=== PATIENT | male | born 1985 | race African-American/Black ===

== ENCOUNTER 2017-04-26 07:56 | Emergency (ER) | payer SELFPAY ==
[2017-04-26 08:05] VITALS: BP 114/64
[2017-04-26] MEDS ORDERED: TRAM-48 PO (08:10)
[2017-04-26] MEDS ORDERED: CIPR500T94 PO (08:10)
--- NOTE | 2017-04-26 08:10 | PHYS DOC ---
Adult General Chief Complaint Chief Complaint: FOOT INJURY PAIN HPI HPI Patient is a 32 year old male with no significant medical history who presents with a puncture wound to the right great toe. Patient states he stepped on the nail with rubber tennis shoes on. Review of Systems Review of Systems Constitutional: Denies fever or chills [] Musculoskeletal: Denies back pain or joint pain [] Integument:puncture wound to the right great toe Neurologic: Denies headache, focal weakness or sensory changes [] Current Medications Current Medications Current Medications Medications (Trade) Dose Ordered Sig/Kami Start Time Stop Time Status Last Admin Dose Admin Acetaminophen/ Hydrocodone Bitart (Lortab 5/325) 1 tab 1X ONCE 04/26/17 08:15 04/26/17 08:16 DC 04/26/17 08:18 1 TAB Diphtheria/ Tetanus/Acell Pertussis (Boostrix) 0.5 ml ONCE ONCE 04/26/17 08:15 04/26/17 08:16 DC 04/26/17 08:18 0.5 ML Allergies Allergies Allergies Coded Allergies Type Severity Reaction Last Updated Verified No Known Drug Allergies 04/26/17 No Physical Exam Physical Exam Constitutional: Well developed, well nourished, no acute distress, non-toxic appearance. [] Skin: Right lateral great toe distal end with a puncture entry and exit wound consistent with a stepping on a sharp object. Full range of motion to the right great toe. +2 right pedal pulse. Cap refill less than 2 seconds the right great toe. Back: No tenderness, no CVA tenderness. [] Extremities: No tenderness, no cyanosis, no clubbing, ROM intact, no edema. [] Neurologic: Alert and oriented X 3, normal motor function, normal sensory function, no focal deficits noted. [] Psychologic: Affect normal, judgement normal, mood normal. [] Current Patient Data Vital Signs Vital Signs Date Time Temp Pulse Resp B/P (MAP) Pulse Ox O2 Delivery O2 Flow Rate FiO2 04/26/17 08:18 16 04/26/17 08:05 98.4 87 114/64 (81) 98 Room Air 98.4 EKG EKG [] Radiology/Procedures Radiology/Procedures [] Course & Med Decision Making Course & Med Decision Making Pertinent Labs and Imaging studies reviewed. (See chart for details) Patient has a puncture wound to the right great toe. Given tetanus in the ED. Discharged on Cipro. Discharge and Motrin for pain. Provided wound care instructions as well as return precautions. Discharged in stable condition. Dragon Disclaimer Dragon Disclaimer This electronic medical record was generated, in whole or in part, using a voice recognition dictation system. Departure Departure Impression: Primary Impression: Puncture wound of foot, right Disposition: 01 HOME, SELF-CARE Condition: STABLE Patient Instructions: Puncture Wound Additional Instructions: You were seen for puncture wound to the right great toe. Keep the area clean and dry. You can wash it with soap and water. Only cover it if it's draining. Take the antibiotics prescribed until completed. Apply Neosporin to the area twice a day. Monitor it for signs and symptoms of infection including but not limited to increased redness warmth or odor/yellow drainage from the area and return to the ED if they occur. Follow-up with your own doctor in 1-2 weeks. Scripts Tramadol Hcl (ULTRAM) 50 Mg Tablet 1 TAB PO Q6HRS, #30 TAB Prov: HALEY GUDINO APRN 04/26/17 Ciprofloxacin Hcl (CIPRO) 500 Mg Tablet 1 TAB PO BID, #14 TAB Prov: HALEY GUDINO APRN 04/26/17 Problem Qualifiers Primary Impression: Puncture wound of foot, right Encounter type: initial encounter Qualified Codes: S91.331A - Puncture wound without foreign body, right foot, initial encounter HALEY GUDINO APRN Apr 26, 2017 08:10 HOLLY MCFARLANE MD Apr 26, 2017 08:58
[2017-04-26] MEDS ORDERED: HYDROcodone/APAP 5/325MG 1 TAB TABLET PO ONE (08:15)
[2017-04-26] MEDS ORDERED: DIPHTH,PERTUSS(ACELL),TET TOX 0.5 ML DISP.SYRIN. VAX IM ONE (08:15)
== END 2017-04-26 08:36 | disposition home or self-care (01) ==
LOC: ER 07:56
DX: S91.131A Puncture wound without foreign body of right great toe without damage to nail, initial encounter (principal); W45.0XXA Nail entering through skin, initial encounter; Y93.89 Activity, other specified; Y99.8 Other external cause status; Y92.89 Other specified places as the place of occurrence of the external cause
CPT/HCPCS: 90471; 90715; 99283-25

== ENCOUNTER 2018-07-31 15:27 | Emergency (ER) | payer SELFPAY ==
[~2018-07-31] VITALS: Ht 193 cm; Wt 94.3 kg
[~2018-07-31 15:27] MED LIST: CIPR500T94 PO; TRAM-48 PO
[2018-07-31] MEDS ORDERED: FAMOTIDINE 20 MG TABLET. PO ONE (16:00)
--- NOTE | 2018-07-31 16:04 | PHYS DOC ---
Past Medical History Past Medical History: No Pertinent History Past Surgical History: No Surgical History Alcohol Use: None Drug Use: None Adult General Chief Complaint Chief Complaint: COUGH HPI HPI Patient is a 33 year old male who presents complaining COUGH with blood tinged sputum earlier today. Patient denies any fever. Denies any nasal congestion. Denies any abdominal pain. He states he has history of smoking. Review of Systems Review of Systems Constitutional: Denies fever or chills [] Eyes: Denies change in visual acuity, redness, or eye pain [] HENT: Denies nasal congestion or sore throat [] Respiratory: Reports cough with blood-tinged sputum, denies shortness of breath [] Cardiovascular: No additional information not addressed in HPI [] GI: Denies abdominal pain, nausea, vomiting, bloody stools or diarrhea [] : Denies dysuria or hematuria [] Musculoskeletal: Denies back pain or joint pain [] Integument: Denies rash or skin lesions [] Neurologic: Denies headache, focal weakness or sensory changes [] All other systems were reviewed and found to be within normal limits, except as documented in this note. Current Medications Current Medications Current Medications Medications (Trade) Dose Ordered Sig/Kami Start Time Stop Time Status Last Admin Dose Admin Famotidine (Pepcid) 20 mg 1X ONCE 07/31/18 16:00 07/31/18 16:01 DC 07/31/18 16:13 20 MG Allergies Allergies Allergies Coded Allergies Type Severity Reaction Last Updated Verified No Known Drug Allergies 04/26/17 No Physical Exam Physical Exam Constitutional: Well developed, well nourished, no acute distress, non-toxic appearance. [] HENT: Normocephalic, atraumatic, bilateral external ears normal, oropharynx moist, no oral exudates, nose normal. [] Eyes: PERRLA, EOMI, conjunctiva normal, no discharge. [] Neck: Normal range of motion, no tenderness, supple, no stridor. [] Cardiovascular:Heart rate regular rhythm, no murmur [] Lungs & Thorax: Bilateral breath sounds clear to auscultation [] Abdomen: Bowel sounds normal, soft, no tenderness, no masses, no pulsatile masses. [] Skin: Warm, dry, no erythema, no rash. [] Back: No tenderness, no CVA tenderness. [] Extremities: No tenderness, no cyanosis, no clubbing, ROM intact, no edema. [] Neurologic: Alert and oriented X 3, normal motor function, normal sensory function, no focal deficits noted. [] Psychologic: Affect normal, judgement normal, mood normal. [] Current Patient Data Vital Signs Vital Signs Date Time Temp Pulse Resp B/P (MAP) Pulse Ox O2 Delivery O2 Flow Rate FiO2 07/31/18 15:52 98.6 61 16 129/63 (85) 98 Room Air 98.6 Lab Values Laboratory Tests Test 07/31/18 15:55 07/31/18 16:20 White Blood Count 7.5 x10^3/uL (4.0-11.0) Red Blood Count 5.05 x10^6/uL (4.30-5.70) Hemoglobin 14.9 g/dL (13.0-17.5) Hematocrit 44.7 % (39.0-53.0) Mean Corpuscular Volume 89 fL (79-100) Mean Corpuscular Hemoglobin 30 pg (25-35) Mean Corpuscular Hemoglobin Concent 33 g/dL (31-37) Red Cell Distribution Width 13.7 % (11.5-14.5) Platelet Count 180 x10^3/uL (140-400) Neutrophils (%) (Auto) 60 % (31-73) Lymphocytes (%) (Auto) 33 % (24-48) Monocytes (%) (Auto) 6 % (0-9) Eosinophils (%) (Auto) 2 % (0-3) Basophils (%) (Auto) 1 % (0-3) Neutrophils # (Auto) 4.5 x10^3uL (1.8-7.7) Lymphocytes # (Auto) 2.5 x10^3/uL (1.0-4.8) Monocytes # (Auto) 0.4 x10^3/uL (0.0-1.1) Eosinophils # (Auto) 0.1 x10^3/uL (0.0-0.7) Basophils # (Auto) 0.0 x10^3/uL (0.0-0.2) Prothrombin Time 13.4 SEC (11.7-14.0) Prothrombin Time INR 1.1 (0.8-1.1) PTT 29 SEC (24-38) D-Dimer ([place]) < 0.27 ug/mlFEU Sodium Level 139 mmol/L (136-145) Potassium Level 4.2 mmol/L (3.5-5.1) Chloride Level 102 mmol/L (98-107) Carbon Dioxide Level 27 mmol/L (21-32) Anion Gap 10 (6-14) Blood Urea Nitrogen 16 mg/dL (8-26) Creatinine 1.0 mg/dL (0.7-1.3) Estimated GFR (Cockcroft-Gault) 104.8 BUN/Creatinine Ratio 16 (6-20) Glucose Level 88 mg/dL (70-99) Calcium Level 9.7 mg/dL (8.5-10.1) Total Bilirubin 0.6 mg/dL (0.2-1.0) Aspartate Amino Transferase (AST) 26 U/L (15-37) Alanine Aminotransferase (ALT) 30 U/L (16-63) Alkaline Phosphatase 71 U/L (46-116) Total Protein 7.7 g/dL (6.4-8.2) Albumin 4.1 g/dL (3.4-5.0) Albumin/Globulin Ratio 1.1 (1.0-1.7) Lipase 77 U/L (73-393) Ethyl Alcohol Level < 10 mg/dL (0-10) Urine Collection Type Unknown Urine Color Yellow Urine Clarity Clear Urine pH 5.5 Urine Specific [place] 1.020 Urine Protein Negative mg/dL (NEG-TRACE) Urine Glucose (UA) Negative mg/dL (NEG) Urine Ketones (Stick) 40 mg/dL (NEG) Urine Blood Negative (NEG) Urine Nitrite Negative (NEG) Urine Bilirubin Negative (NEG) Urine Urobilinogen Dipstick 0.2 mg/dL (0.2 mg/dL) Urine Leukocyte Esterase Negative (NEG) Urine RBC 0 /HPF (0-2) Urine WBC 0 /HPF (0-4) Urine Squamous Epithelial Cells Few /LPF Urine Bacteria 0 /HPF (0-FEW) Urine Mucus Marked /LPF Urine Opiates Screen Neg (NEG) Urine Methadone Screen Neg (NEG) Urine Barbiturates Neg (NEG) Urine Phencyclidine Screen Neg (NEG) Urine Amphetamine/Methamphetamine Neg (NEG) Urine Benzodiazepines Screen Neg (NEG) Urine Cocaine Screen Neg (NEG) Urine Cannabinoids Screen Neg (NEG) Urine Ethyl Alcohol Neg (NEG) Laboratory Tests 07/31/18 15:55 Laboratory Tests 07/31/18 15:55 EKG EKG [] Radiology/Procedures Radiology/Procedures []PROCEDURE: CHEST PA & LATERAL AP and Lateral Views of the Chest 07/31/2018 4:04 PM Indication: COUGHED UP SOME BLOOD TODAY. HAS HX OF GERD, HX OF ASTHMA WHEN YOUNG, HAS ALSO BEEN HAVING SOME BILATERAL LOWER RIB PAIN. Comparison: None Findings: There is no focal consolidation or infiltrate identified. The cardiomediastinal silhouette is within normal limits. There is no evidence of pneumothorax or pleural effusion. No acute osseous abnormalities are identified. Impression: No evidence of acute cardiopulmonary process. Electronically signed by: Mike Medrano MD (07/31/2018 4:22 PM) [facility] DICTATED and SIGNED BY: MIKE MEDRANO MD DATE: 07/31/18 162 Course & Med Decision Making Course & Med Decision Making Pertinent Labs and Imaging studies reviewed. (See chart for details) This is a 33-year-old male patient presenting to the ED today with complaints of a cough with blood in sputumX1. Hx of smoking encouraged to consider smoking cessation. Patient's labs including d-dimer were negative for any acute findings. Chest x-ray interpreted by radiologist was also negative. Patient is in no distress. He was discharged to home. Instructed to return to the ED at any point symptoms worsen. Follow-up with primary care doctor in 1-2 weeks. Dragon Disclaimer Dragon Disclaimer This electronic medical record was generated, in whole or in part, using a voice recognition dictation system. Departure Departure Impression: Primary Impression: Smoking addiction Additional Impression: Bronchitis Disposition: 01 HOME, SELF-CARE Condition: STABLE Referrals: NO PCP (PCP) follow up with your doctor in one week Patient Instructions: Acute Bronchitis, Smoking Cessation, Tips For Success Additional Instructions: You were seen with symptoms of bronchitis. Consider smoking cessation. Follow up with your doctor next week come back to the Ed if symptoms worsen. Scripts Prednisone (PREDNISONE) 50 Mg Tablet 1 TAB PO DAILY, #5 TAB Prov: HALEY GUDINO APRN 07/31/18 Albuterol Sulfate (VENTOLIN HFA INHALER) 18 Gm Hfa.aer.ad 2 PUFF INH Q4HRS for FOR ASTHMA, #1 INHALER 0 Refills Prov: HALEY GUDINO APRN 11/19/18 Problem Qualifiers HALEY GUDINO APRN Jul 31, 2018 16:04
[2018-07-31 16:08] LABS: BASO % 1 % (0-3); EOS # 0.1 x10^3/uL (0.0-0.7); EOS % 2 % (0-3); HEMATOCRIT 44.7 % (39.0-53.0); HEMOGLOBIN 14.9 g/dL (13.0-17.5); LYMPH # 2.5 x10^3/uL (1.0-4.8); LYMPH % 33 % (24-48); MEAN CORPUSCULAR HEMOGLOBIN 30 pg (25-35); MEAN CORPUSCULAR HGB CONC 33 g/dL (31-37); MEAN CORPUSCULAR VOLUME 89 fL (79-100); MONO # 0.4 x10^3/uL (0.0-1.1); MONO % 6 % (0-9); NEUT # 4.5 x10^3uL (1.8-7.7); NEUT % 60 % (31-73); PLATELET COUNT 180 x10^3/uL (140-400); RED BLOOD COUNT 5.05 x10^6/uL (4.30-5.70); RED CELL DISTRIBUTION WIDTH 13.7 % (11.5-14.5); WHITE BLOOD COUNT 7.5 x10^3/uL (4.0-11.0)
[2018-07-31 16:18] LABS: PARTIAL THROMBOPLASTIN TIME 29 SEC (24-38); PROTHROMBIN TIME PATIENT 13.4 SEC (11.7-14.0)
[2018-07-31 16:21] LABS: D-DIMER < 0.27 ug/mlFEU (0.00-0.50)
[2018-07-31 16:25] LABS: CALCIUM 9.7 mg/dL (8.5-10.1); GFR 104.8; POTASSIUM 4.2 mmol/L (3.5-5.1)
--- NOTE | 2018-07-31 16:25 | RAD ---
AP and Lateral Views of the Chest 07/31/2018 4:04 PM Indication: COUGHED UP SOME BLOOD TODAY. HAS HX OF GERD, HX OF ASTHMA WHEN YOUNG, HAS ALSO BEEN HAVING SOME BILATERAL LOWER RIB PAIN. Comparison: None Findings: There is no focal consolidation or infiltrate identified. The cardiomediastinal silhouette is within normal limits. There is no evidence of pneumothorax or pleural effusion. No acute osseous abnormalities are identified. Impression: No evidence of acute cardiopulmonary process. Electronically signed by: Mike Neumann MD (07/31/2018 4:22 PM) [facility]
[2018-07-31 16:28] LABS: ALBUMIN 4.1 g/dL (3.4-5.0); ALBUMIN/GLOBULIN RATIO 1.1 (1.0-1.7); TOTAL BILIRUBIN 0.6 mg/dL (0.2-1.0); TOTAL PROTEIN 7.7 g/dL (6.4-8.2)
[2018-07-31 16:28] LABS: BILIRUBIN,URINE NEGATIVE (NEG); CLARITY,URINE CLEAR; COLOR,URINE YELLOW; NITRITE,URINE NEGATIVE (NEG); PH,URINE 5.5; PROTEIN,URINE NEGATIVE (NEG-TRACE); UROBILINOGEN,URINE 0.2 mg/dL (0.2 mg/dL)
[2018-07-31 16:36] LABS: BACTERIA,URINE 0 /HPF (0-FEW); RBC,URINE 0 /HPF (0-2); SQUAMOUS EPITHELIAL CELL,UR FEW /LPF; WBC,URINE 0 /HPF (0-4)
[2018-07-31 16:39] LABS: BARBITURATES NEG (NEG); BENZODIAZEPINES NEG (NEG); CANNABINOIDS NEG (NEG); COCAINE NEG (NEG); METHADONE NEG (NEG); OPIATES NEG (NEG); PHENCYCLIDINE NEG (NEG)
[2018-07-31 16:42] LABS: AMPHETAMINE/METHAMPHETAMINE NEG (NEG)
[2018-07-31] MEDS ORDERED: VENTOLIN HFA18 GM INH (17:16)
[2018-07-31] MEDS ORDERED: PRED50TA PO (17:16)
[2018-07-31 17:45] VITALS: BP 140/79
== END 2018-07-31 17:55 | disposition home or self-care (01) ==
LOC: ER 15:27
DX: J40 Bronchitis, not specified as acute or chronic (principal); F17.200 Nicotine dependence, unspecified, uncomplicated
CPT/HCPCS: 36415; 71046; 80053; 80307; 81001; 83690; 85025; 85379; 85610; 85730; 99284; G0480